=== PATIENT | female | born 1980 | race Caucasian/White ===

== ENCOUNTER 2016-08-31 14:50 | Emergency (ER) | payer SELFPAY ==
[2016-08-31 15:06] VITALS: BP 153/104
[2016-08-31] MEDS ORDERED: Ketorolac 60 MG/2 ML SDV IM ONE (15:21)
--- NOTE | 2016-08-31 15:27 | EDM.PDOC ---
ED HPI Trauma - General Chief Complaint: Lower Extremity Injury/Pain Stated Complaint: PAIN IN FEET Time Seen by Provider: 08/31/16 15:04 Source: Reports: Patient History Limitations: Reports: No limitations - History of Present Illness INITIAL COMMENTS - FREE TEXT/NARRATIVE: Patient is a 36-year-old female who presents to the ED complaining of bilateral foot discomfort. Patient states yesterday at her son's birthday republican she was walking excessively wearing slip on shoes. States the discomfort to the arches have progressively gotten worse. She notices increase pain with ambulation in the morning with mild improvement. Discomfort persists throughout the course of the day. She is taking Tylenol and ibuprofen with no relief. She describes the pain as a throbbing sensation. She is wearing sandals and slip on shoes only. She has no prior history of similar symptoms. She denies any additional known precipitating factors. In addition patient is tearful and upset with discomfort to her feet bilaterally. She does state she has a history of genital herpes and is currently having a outbreak. States has no pain with sores are present. She's not medicated for this. She also stopped taking her Lexapro approximately 2 weeks ago. She did not refill the prescription medication. She does have a history of depression anxiety. She recently moved back in with her of 12 years. Patient denies history of gout. Occurred When: other Occurred Where: home Method of Injury: unknown Severity: moderate Pain/Injury Location: Reports: lower extremity, right, lower extremity, left Associated Symptoms: Reports: trouble walking (2nd to foot pain) Allergies/ADRs: Allergies pork Allergy (Uncoded 08/31/16 15:02) Swelling Home Medications: Ambulatory Orders Escitalopram Oxalate [Lexapro] 10 mg PO DAILY 08/30/15 [Confirmed 06/24/16] LORazepam [Ativan] 1 mg PO ASDIRECTED 04/12/16 [Confirmed 06/24/16] Dicyclomine Hcl [IJD: Dicyclomine] 20 mg PO .THREE TIMES DAILY #10 tab 06/22/16 [Confirmed 06/24/16] Acetaminophen/HYDROcodone [[place] 325-5 MG] 1 tab PO Q6H PRN #5 tablet 06/24/16 Past Medical History - Past Health History Medical/Surgical History: Denies 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: Psychiatric History: Reports: Anxiety - Infectious Disease History Infectious Disease History: Reports: Herpes - Past Surgical History HEENT Surgical History: Reports: Tonsillectomy GI Surgical History: Reports: Appendectomy Female Surgical History: Reports: D&C Social & Family History - Tobacco Use Smoking Status *Q: Current Every Day Smoker Years of Tobacco use: 20 Packs/Tins Daily: 0.5 Used Tobacco, but Quit: No Second Hand Smoke Exposure: No - Caffeine Use Caffeine Use: Reports: Tea - Alcohol Use Days Per Week of Alcohol Use: 2 Number of Drinks Per Day: 1 Total Drinks Per Week: 2 - Recreational Drug Use Recreational Drug Use: No Review of Systems - Review of Systems Review Of Systems: See Below Trauma Exam - Physical Exam Exam: See Below Exam Limited By: No limitations General Appearance: Reports: alert, WD/WN, other (upset, tearful) Ears: Reports: hearing grossly normal Nose: Reports: normal inspection Throat/Mouth: Reports: Normal voice, No airway compromise Neck: Reports: other (supple) Respiratory Exam: Reports: no respiratory distress, lungs clear, normal breath sounds, no accessory muscle use Cardiovascular: Reports: normal peripheral pulses, regular rate, rhythm, no edema, no murmur Extremities: Reports: no evidence of injury, normal range of motion, non-tender , no pedal edema. Denies: tenderness, unable to bear weight Neurologic: Reports: no motor/sensory deficits, alert, normal mood/affect, oriented x 3 Skin: Reports: Normal color, Warm/dry Course - Vital Signs Last Recorded V/S: Last Vital Signs Temp 97.7 F 08/31/16 15:02 Pulse 85 08/31/16 15:02 Resp 18 08/31/16 15:02 BP 153/104 H 08/31/16 15:02 Pulse Ox 99 08/31/16 15:02 - Orders/Labs/Meds Meds: Medications Discontinued Medications Generic Name Dose Route Start Last Admin Trade Name Refugio PRN Reason Stop Dose Admin Ketorolac Tromethamine 60 mg 08/31/16 15:21 08/31/16 15:29 Toradol IM 08/31/16 15:22 60 mg ONETIME ONE Administration - Re-Assessments/Exams Free Text/Narrative Re-Assessment/Exam: 08/31/16 15:22 Examination did not elicit any abnormal findings on examination. History suggestive of plantar fasciitis. Patient does wear slip on shoes majority of the time which can aggravate symptoms. Patient will see a primary care provider at the [facility] for further treatment of genital herpes. In addition we'll refer the patient to a sander and polisher for further evaluation treatment of her discomfort. Discharge instructions as documented. Departure - Departure Time of Disposition: 15:41 Disposition: Home, Self-Care 01 Condition: good Clinical Impression: Plantar fasciitis, bilateral, Foot pain, bilateral Instructions: Plantar Fasciitis Referrals: PCP,Dorita [Primary Care Provider] - Shae Rockwell PA [Physician Team Truck Driver] - Forms: ED Department Discharge Additional Instructions: As discussed symptoms are most likely related to plantar fasciitis aggravated by wearing slip on shoes. Thus will have you take Tylenol and ibuprofen and alternate fashion for discomfort. Refrain from wearing slip on shoes. Wearing shoes that she can tie. Refrain from any activities that cause worsening discomfort. Can utilize gentle stretching and massage the feet he may be a discomfort. Followup with a sander and polisher of your choice for further examination and treatment. Will have you followup with a primary care provider at [facility] for further evaluation and treatment for genital herpes. Return to the ED as needed for any new or worsening symptoms.
== END 2016-08-31 15:54 | disposition home or self-care (01) ==
LOC: JD.ED 14:50
DX: M72.2 Plantar fascial fibromatosis (principal); F41.9 Anxiety disorder, unspecified; F17.210 Nicotine dependence, cigarettes, uncomplicated; Z79.899 Other long term (current) drug therapy; Z98.890 Other specified postprocedural states; Z90.49 Acquired absence of other specified parts of digestive tract; Z91.018 Allergy to other foods
CPT/HCPCS: 96372; 99283; J1885

== ENCOUNTER 2016-11-14 12:56 | Emergency (ER) | payer SELFPAY ==
--- NOTE | 2016-11-14 13:50 | EDM.PDOC ---
ED HPI GENERAL MEDICAL PROBLEM - General Chief Complaint: ENT Problem Stated Complaint: SORES ON TONGUE, SWOLLEN TONGUE Time Seen by Provider: 11/14/16 13:33 Source of Information: Reports: Patient, RN Notes Reviewed History Limitations: Reports: No Limitations - History of Present Illness INITIAL COMMENTS - FREE TEXT/NARRATIVE: The patient states that she has mouth pain, that feels like she is eating glass , since this past , 11/12/2016. She states that it is worse today. She states that her tongue is swollen. The patient states that she was recently told that she has a canker sore, and confirms that she has a history of canker sores. No recent fever. The patient has not tried any home remedies. The patient does not have a PCP. 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: Psychiatric History: Reports: Anxiety (untreated), Depression (untreated) - Infectious Disease History Infectious Disease History: Reports: Herpes - Past Surgical History HEENT Surgical History: Reports: Adenoidectomy, Tonsillectomy GI Surgical History: Reports: Appendectomy Female Surgical History: Reports: D&C (x 3) Social & Family History - Family History Family Medical History: Noncontributory - Tobacco Use Smoking Status *Q: Current Some Day Smoker Years of Tobacco use: 15 Packs/Tins Daily: 0.1 - Caffeine Use Caffeine Use: Reports: Tea - Alcohol Use Alcohol Use History: Yes Days Per Week of Alcohol Use: 2 Number of Drinks Per Day: 1 Total Drinks Per Week: 2 Alcohol Use Frequency: Socially - Recreational Drug Use Recreational Drug Use: No - Living Situation & Occupation Living situation: Reports: , with Spouse, with Family (3 kids) Occupation: Employed ([employer]) ED ROS ENT - Review of Systems Review Of Systems: See Below Constitutional: Reports: No Symptoms HEENT: Reports: No Symptoms Respiratory: Reports: No Symptoms Cardiovascular: Reports: No Symptoms Endocrine: Reports: No Symptoms GI/Abdominal: Reports: No Symptoms : Reports: No Symptoms Musculoskeletal: Reports: No Symptoms Skin: Reports: No Symptoms Neurological: Reports: No Symptoms Psychiatric: Reports: No Symptoms Hematologic/Lymphatic: Reports: No Symptoms Immunologic: Reports: No Symptoms ED EXAM, ENT - Physical Exam Exam: See Below Exam Limited By: No Limitations General Appearance: Alert, WD/WN, No Apparent Distress Eye Exam: Bilateral Eye: Normal Inspection Ears: Normal External Exam, Normal Canal, Hearing Grossly Normal, Normal TMs Nose: Normal Inspection, Normal Mucousa, No Blood Mouth/Throat: Normal Gums, Normal Lips, Normal Oropharynx, Normal Teeth, Other ( Single aphthous ulcer noted on the underside right of the patient's tongue, with no associated swelling or erythema. No other oral lesions seen.). No: Tongue Swelling Head: Atraumatic, Normocephalic Neck: Normal Inspection, Supple, Non-Tender, Full Range of Motion. No: Lymphadenopathy (L), Lymphadenopathy (R) Course - Vital Signs Last Recorded V/S: Last Vital Signs Temp 36.8 C 11/14/16 13:00 Pulse 94 11/14/16 13:00 Resp 16 11/14/16 13:00 BP 126/89 11/14/16 13:00 Pulse Ox 98 11/14/16 13:00 - Re-Assessments/Exams Free Text/Narrative Re-Assessment/Exam: 11/14/16 13:45 Despite the patient's claim of pain all over her mouth, I see only a single aphthous ulcer on the right underside of her tongue, with no associated swelling or erythema, and I see no other oral lesions or tongue swelling. I explained to the patient that this is caused by a virus, and there are no treatments (other than steroids with Orabase, which, in my experience, does not work). I'm recommending the patient avoid hot, spicy, salty, or sweet foods. Departure - Departure Time of Disposition: 13:47 Disposition: Home, Self-Care 01 Condition: Good Clinical Impression: Aphthous ulcer of tongue - Discharge Information Referrals: PCP,None [Primary Care Provider] - Loly Rivas SIZE MAKER [Ordering Only Provider] - Forms: ED Department Discharge Additional Instructions: You were seen in the emergency room for mouth pain. On examination, you have an aphthous ulcer (canker sore) on the underside of your tongue. Canker sores are caused by a virus. Unfortunately, there is no medical treatment for them. We recommend you try to avoid hot, spicy, sweet, and salty foods. Cold and bland, such as sucking on ice cube, will be most comfortable. If any other problems, please do not hesitate to return to the ER.
== END 2016-11-14 13:55 | disposition home or self-care (01) ==
LOC: JD.ED 12:56
CPT/HCPCS: 99282; 99283

== ENCOUNTER 2017-01-11 13:06 | Emergency (ER) | payer SELFPAY ==
[2017-01-11 13:13] VITALS: BP 135/105
[2017-01-11] MEDS ORDERED: Sodium Chloride 0.9% 10 ML Syringe FLUSH PRN (13:33)
--- NOTE | 2017-01-11 15:21 | EDM.PDOC ---
ED HPI GENERAL MEDICAL PROBLEM - General Chief Complaint: Chest Pain Stated Complaint: [facility] Time Seen by Provider: 01/11/17 13:18 Source of Information: Reports: Patient, EMS History Limitations: Reports: No Limitations - History of Present Illness INITIAL COMMENTS - FREE TEXT/NARRATIVE: The patient presents with chest pain at work. This started prior to arrival. She was short of breath with it and anxious. She had a 5 hour energy drink this morning. She has a history of anxiety and she stopped her medications. She denies fever, abdominal pain, nausea or vomiting. She has a cough and chills. She was on antibiotics for bronchitis a few days ago. She is not wheezing but she does have a cough yet. Onset: Sudden Duration: Minutes: Location: Reports: Chest Quality: Reports: Pressure Severity: Moderate Improves with: Reports: None Worsens with: Reports: None Associated Symptoms: Reports: Chest Pain, Cough, Shortness of Breath. Denies: Fever/Chills, Nausea/Vomiting - Related Data Allergies Allergy/AdvReac Type Severity Reaction Status Date / Time pork Allergy Swelling Uncoded 01/11/17 13:13 Home Meds: Home Meds Ascorbic Acid [Vitamin C] 1 tab PO DAILY 11/14/16 [History] Cholecalciferol (Vitamin D3) [Vitamin D3] 1 tab PO DAILY 11/14/16 [History] Fish Oil/[place]-3 Fatty Acids [Fish Oil 1,000 MG] 1 tab PO DAILY 11/14/16 [ History] Multivitamin [Multi-Vitamin Daily] 1 tab PO DAILY 11/14/16 [History] Vitamin E 1 tab PO DAILY 11/14/16 [History] Past Medical History - Past Health History Medical/Surgical History: Denies Medical/Surgical History Respiratory 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: 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, 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: Psychiatric History: Reports: Anxiety, Depression, Panic Attack - Infectious Disease History Infectious Disease History: Reports: Herpes - Past Surgical History HEENT Surgical History: Reports: Adenoidectomy, Tonsillectomy GI Surgical History: Reports: Appendectomy Female Surgical History: Reports: D&C, Oophorectomy Social & Family History - Family History Family Medical History: Noncontributory - Tobacco Use Smoking Status *Q: Current Some Day Smoker Years of Tobacco use: 10 Packs/Tins Daily: 0.1 Used Tobacco, but Quit: No Second Hand Smoke Exposure: No - Caffeine Use Caffeine Use: Reports: Energy Drinks - Alcohol Use Days Per Week of Alcohol Use: 2 Number of Drinks Per Day: 1 Total Drinks Per Week: 2 - Recreational Drug Use Recreational Drug Use: No - Living Situation & Occupation Living situation: Reports: , with Spouse, with Family (3 kids) 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) ED ROS GENERAL - Review of Systems Review Of Systems: See Below Constitutional: Reports: No Symptoms HEENT: Reports: No Symptoms Respiratory: Reports: Shortness of Breath Cardiovascular: Reports: Chest Pain Endocrine: Reports: No Symptoms GI/Abdominal: Reports: No Symptoms : Reports: No Symptoms Musculoskeletal: Reports: No Symptoms Skin: Reports: No Symptoms ED EXAM, GENERAL - Physical Exam Exam: See Below Exam Limited By: No Limitations General Appearance: Alert, No Apparent Distress Ears: Normal External Exam Nose: Normal Inspection Head: Atraumatic, Normocephalic Neck: Normal Inspection Respiratory/Chest: No Respiratory Distress, Lungs Clear, Normal Breath Sounds Cardiovascular: Regular Rate, Rhythm, No Edema, No Murmur GI/Abdominal: Soft, Non-Tender, No Organomegaly, No Mass Back Exam: Normal Inspection Extremities: Normal Inspection EKG INTERPRETATION EKG Date: 01/11/17 Time: 13:14 Rhythm: NSR Rate (Beats/Min): 86 [place]: Normal P-Wave: Present QRS: Normal ST-T: Normal QT: Normal Course - Vital Signs Last Recorded V/S: Last Vital Signs Temp 97.9 F 01/11/17 13:10 Pulse 91 01/11/17 13:10 Resp 18 01/11/17 13:10 BP 135/105 H 01/11/17 13:10 Pulse Ox 100 01/11/17 13:10 - Orders/Labs/Meds Orders: Active Orders 24 hr Category Date Time Status Cardiac Monitoring [RC] . DIRECTED Care 01/11/17 13:33 Active EKG 12 Lead [EKG Documentation Completion] [RC] STAT Care 01/11/17 13:18 Active Peripheral IV Care [RC] . DIRECTED Care 01/11/17 13:34 Active Chest 2V [CR] Stat Exams 01/11/17 13:34 Taken Sodium Chloride 0.9% [Saline Flush] Med 01/11/17 13:33 Active 10 ml FLUSH ASDIRECTED PRN Peripheral IV Insertion Adult [OM.PC] Stat Oth 01/11/17 13:33 Ordered Medication Orders Sodium Chloride (Saline Flush) 10 ml FLUSH ASDIRECTED PRN PRN Reason: Keep Vein Open Last Admin: 01/11/17 13:53 Dose: 10 ml Labs: Laboratory Tests 01/11/17 01/11/17 01/11/17 Range/Units 14:10 14:10 14:10 WBC 6.76 (3.98-10.04) K/mm3 RBC 4.16 (3.98-5.22) M/mm3 Hgb 13.0 (11.2-15.7) gm/L Hct 37.9 (34.1-44.9) % MCV 91.1 (79.4-94.8) fl MCH 31.3 (25.6-32.2) pg MCHC 34.3 (32.2-35.5) g/dl RDW Std Deviation 39.8 (36.4-46.3) fL Plt Count 182 (182-369) K/mm3 MPV 10.3 (9.4-12.3) fl Neut % (Auto) 60.8 (34.0-71.1) % Lymph % (Auto) 27.1 (19.3-51.7) % [place] % (Auto) 9.0 (4.7-12.5) % Eos % (Auto) 2.4 (0.7-5.8) Baso % (Auto) 0.6 (0.1-1.2) % Neut # (Auto) 4.11 (1.56-6.13) K/mm3 Lymph # (Auto) 1.83 (1.18-3.74) K/mm3 [place] # (Auto) 0.61 H (0.24-0.36) K/mm3 Eos # (Auto) 0.16 (0.04-0.36) K/mm3 Baso # (Auto) 0.04 (0.01-0.08) K/mm3 D-Dimer, Quantitative < 0.19 L (0.19-0.59) mg/L Sodium 137 (136-145) mEq/L Potassium 3.7 (3.5-5.1) mEq/L Chloride 101 (98-107) mEq/L Carbon Dioxide 27 (21-32) mEq/L Anion Gap 12.7 (5-15) BUN 12 (7-18) mg/dL Creatinine 0.8 (0.55-1.02) mg/dL Est Cr Clr Drug Dosing 90.13 mL/min Estimated GFR (MDRD) > 60 (>60) mL/min BUN/Creatinine Ratio 15.0 (14-18) Glucose 112 H (74-106) mg/dL Calcium 9.2 (8.5-10.1) mg/dL Total Bilirubin 0.8 (0.2-1.0) mg/dL AST 16 (15-37) U/L ALT 24 (14-59) U/L Alkaline Phosphatase 72 (46-116) U/L Troponin I < 0.017 (0.00-0.056) ng/mL Total Protein 7.6 (6.4-8.2) g/dl Albumin 4.0 (3.4-5.0) g/dl Globulin 3.6 gm/dL Albumin/Globulin Ratio 1.1 (1-2) Meds: Medications Generic Name Dose Route Start Last Admin Trade Name Freq PRN Reason Stop Dose Admin Sodium Chloride 10 ml 01/11/17 13:33 01/11/17 13:53 Saline Flush FLUSH 10 ml ASDIRECTED PRN Administration Keep Vein Open - Re-Assessments/Exams Free Text/Narrative Re-Assessment/Exam: 01/11/17 15:20 I ordered an IV saline lock, labs, EKG, and CXR. Her pain is gone now. Her EKG shows a NSR. Her CXR looks good. Her CBC and CMP look good. Her troponin is negative. She feels better. I will discharge her home. 01/11/17 15:26 Her D-dimer was negative. Departure - Departure Time of Disposition: 15:30 Disposition: Home, Self-Care 01 Condition: Good Clinical Impression: Atypical chest pain, Anxiety reaction Referrals: Loly Rivas ROOMING HOUSE INSPECTOR [Primary Care Provider] - Forms: ED Department Discharge, ED Return to Work/School Form Additional Instructions: Avoid the energy drinks. Most of them have to much caffeine and other stimulants and can make your heart race of have chest pain. Go home and rest today. - My Orders Last 24 Hours: My Active Orders 01/11/17 13:18 EKG 12 Lead [EKG Documentation Completion] [RC] STAT 01/11/17 13:33 Cardiac Monitoring [RC] . DIRECTED Sodium Chloride 0.9% [Saline Flush] 10 ml FLUSH ASDIRECTED PRN Peripheral IV Insertion Adult [OM.PC] Stat 01/11/17 13:34 Peripheral IV Care [RC] . DIRECTED Chest 2V [CR] Stat - Assessment/Plan Last 24 Hours: My Active Orders 01/11/17 13:18 EKG 12 Lead [EKG Documentation Completion] [RC] STAT 01/11/17 13:33 Cardiac Monitoring [RC] . DIRECTED Sodium Chloride 0.9% [Saline Flush] 10 ml FLUSH ASDIRECTED PRN Peripheral IV Insertion Adult [OM.PC] Stat 01/11/17 13:34 Peripheral IV Care [RC] . DIRECTED Chest 2V [CR] Stat
--- NOTE | 2017-01-12 07:57 | CR ---
Chest: Two views of the chest were obtained. Comparison: Previous chest x-ray of 09/08/13. Heart size and mediastinum are normal. Lungs are clear. Bony structures are unremarkable. Impression: 1. Nothing acute is identified on two-view chest x-ray. Diagnostic code #1
== END 2017-01-11 15:38 | disposition home or self-care (01) ==
LOC: JD.ED 13:06
DX: F41.1 Generalized anxiety disorder (principal); R07.89 Other chest pain; F17.210 Nicotine dependence, cigarettes, uncomplicated; Z98.890 Other specified postprocedural states; Z91.018 Allergy to other foods
CPT/HCPCS: 36415; 71020; 80053; 84484; 85025; 85379; 93005; 99285; J7050; 99284

== ENCOUNTER 2017-10-28 00:34 | Emergency (ER) | payer OTHER ==
[2017-10-28 00:38] VITALS: BP 105/79
[2017-10-28] MEDS ORDERED: LORazepam 2 MG/ML SDV IVPUSH ONE (00:56)
[2017-10-28] MEDS ORDERED: Sodium Chloride 0.9% 10 ML Syringe FLUSH PRN (00:56)
[2017-10-28] MEDS ORDERED: diphenhydrAMINE 50 MG/ML SDV IVPUSH ONE (00:56)
--- NOTE | 2017-10-28 01:40 | EDM.PDOC ---
ED HPI GENERAL MEDICAL PROBLEM - General Chief Complaint: Allergic Reaction Stated Complaint: [facility] Time Seen by Provider: 10/28/17 00:40 Source of Information: Reports: Patient, EMS History Limitations: Reports: No Limitations - History of Present Illness INITIAL COMMENTS - FREE TEXT/NARRATIVE: The patient presents by [facility] for possible allergic reaction. Her psychiatrist made some changes to her meds today. She now has pain in her hips and leg. The pain feels like cramps. She has no shortness of breath or swelling in her throat. She is not sure of all the changes but she has a sheet of paper that shows they stopped her trazadone and she says she did not get any clonidine. She is upset and crying for my exam. Onset: Gradual Duration: Hour(s): Location: Reports: Lower Extremity, Left, Lower Extremity, Right Quality: Reports: Other (cramping) Severity: Moderate Improves with: Reports: None Worsens with: Reports: None Associated Symptoms: Reports: No Other Symptoms Bilateral Leg Pain Score (Numeric/FACES): 6 - Related Data Allergies Allergy/AdvReac Type Severity Reaction Status Date / Time pork Allergy Swelling Uncoded 01/11/17 13:13 Home Meds: Home Meds Acetaminophen/Diphenhydramine [Tylenol Pm Ex-Strength Caplet] 1 tab PO DAILY PRN 10/28/17 [History] Escitalopram [Lexapro] 10 mg PO DAILY 10/28/17 [History] LORazepam [Ativan] 0.5 mg PO Q8H PRN 10/28/17 [History] Prazosin HCl [Prazosin] 2 mg PO DAILY 10/28/17 [History] carBAMazepine [Carbamazepine] 200 mg PO BID 10/28/17 [History] hydrOXYzine Pamoate [Hydroxyzine Pamoate] 50 mg PO DAILY 10/28/17 [History] Past Medical History - Past Health History Medical/Surgical History: Denies Medical/Surgical History Respiratory History: 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, Recurrent CPO History: Reports: Psychiatric History: Reports: Anxiety, Depression, Panic Attack - Infectious Disease History Infectious Disease History: Reports: Herpes - Past Surgical History HEENT Surgical History: Reports: Adenoidectomy, Tonsillectomy GI Surgical History: Reports: Appendectomy Female Surgical History: Reports: D&C, Oophorectomy Social & Family History - Family History Family Medical History: Noncontributory - Tobacco Use Smoking Status *Q: Current Every Day Smoker Years of Tobacco use: 10 Packs/Tins Daily: 0.5 - Caffeine Use Caffeine Use: Reports: Coffee - Recreational Drug Use Recreational Drug Use: Yes - Living Situation & Occupation Living situation: Reports: , with Spouse, with Family (3 kids) 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) ED ROS ALLERGIC REACTION - Review of Systems Review Of Systems: See Below Constitutional: Reports: No Symptoms HEENT: Reports: No Symptoms Respiratory: Reports: No Symptoms Cardiovascular: Reports: No Symptoms Endocrine: Reports: No Symptoms GI/Abdominal: Reports: No Symptoms : Reports: No Symptoms Musculoskeletal: Reports: Other (Bilateral hip and leg pain) ED EXAM GENERAL NO PERIP PULSE - Physical Exam Exam: See Below Exam Limited By: No Limitations General Appearance: Alert, Mild Distress Ears: Normal External Exam Nose: Normal Inspection Head: Atraumatic, Normocephalic Neck: Normal Inspection Respiratory/Chest: No Respiratory Distress, Lungs Clear, Normal Breath Sounds Cardiovascular: Regular Rate, Rhythm, No Edema, No Murmur GI/Abdominal: Soft, Non-Tender, No Organomegaly, No Mass Back Exam: Normal Inspection Extremities: Other (Mild pain upon palpation to both hips and lower legs.) Course - Vital Signs Last Recorded V/S: Last Vital Signs Temp 98.1 F 10/28/17 00:35 Pulse 70 10/28/17 02:07 Resp 18 10/28/17 00:35 BP 105/79 10/28/17 00:35 Pulse Ox 98 10/28/17 02:07 - Orders/Labs/Meds Orders: Active Orders 24 hr Category Date Time Status Cardiac Monitoring [RC] . DIRECTED Care 10/28/17 00:56 Active Peripheral IV Care [RC] . DIRECTED Care 10/28/17 00:56 Active Sodium Chloride 0.9% [Saline Flush] Med 10/28/17 00:56 Active 10 ml FLUSH ASDIRECTED PRN Peripheral IV Insertion Adult [OM.PC] Stat Oth 10/28/17 00:56 Ordered Medication Orders Sodium Chloride (Saline Flush) 10 ml FLUSH ASDIRECTED PRN PRN Reason: Keep Vein Open Last Admin: 10/28/17 01:20 Dose: 10 ml Labs: Laboratory Tests 10/28/17 10/28/17 Range/Units 00:45 00:45 WBC 8.23 (3.98-10.04) K/mm3 RBC 4.23 (3.98-5.22) M/mm3 Hgb 13.1 (11.2-15.7) gm/L Hct 37.9 (34.1-44.9) % MCV 89.6 (79.4-94.8) fl MCH 31.0 (25.6-32.2) pg MCHC 34.6 (32.2-35.5) g/dl RDW Std Deviation 39.7 (36.4-46.3) fL Plt Count 197 (182-369) K/mm3 MPV 11.1 (9.4-12.3) fl Neut % (Auto) 48.4 (34.0-71.1) % Lymph % (Auto) 39.2 (19.3-51.7) % [place] % (Auto) 7.7 (4.7-12.5) % Eos % (Auto) 4.0 (0.7-5.8) Baso % (Auto) 0.5 (0.1-1.2) % Neut # (Auto) 3.98 (1.56-6.13) K/mm3 Lymph # (Auto) 3.23 (1.18-3.74) K/mm3 [place] # (Auto) 0.63 H (0.24-0.36) K/mm3 Eos # (Auto) 0.33 (0.04-0.36) K/mm3 Baso # (Auto) 0.04 (0.01-0.08) K/mm3 Sodium 136 (136-145) mEq/L Potassium 3.8 (3.5-5.1) mEq/L Chloride 103 (98-107) mEq/L Carbon Dioxide 24 (21-32) mEq/L Anion Gap 12.8 (5-15) BUN 16 (7-18) mg/dL Creatinine 0.8 (0.55-1.02) mg/dL Est Cr Clr Drug Dosing 82.33 mL/min Estimated GFR (MDRD) > 60 (>60) mL/min BUN/Creatinine Ratio 20.0 H (14-18) Glucose 130 H (74-106) mg/dL Calcium 8.6 (8.5-10.1) mg/dL Magnesium 1.6 L (1.8-2.4) mg/dl Total Bilirubin 0.3 (0.2-1.0) mg/dL AST 10 L (15-37) U/L ALT 16 (14-59) U/L Alkaline Phosphatase 86 (46-116) U/L Total Protein 7.0 (6.4-8.2) g/dl Albumin 3.7 (3.4-5.0) g/dl Globulin 3.3 gm/dL Albumin/Globulin Ratio 1.1 (1-2) Meds: Medications Generic Name Dose Route Start Last Admin Trade Name Freq PRN Reason Stop Dose Admin Sodium Chloride 10 ml 10/28/17 00:56 10/28/17 01:20 Saline Flush FLUSH 10 ml ASDIRECTED PRN Administration Keep Vein Open Discontinued Medications Generic Name Dose Route Start Last Admin Trade Name Freq PRN Reason Stop Dose Admin Diphenhydramine HCl 50 mg 10/28/17 00:56 10/28/17 01:17 Benadryl IVPUSH 10/28/17 00:57 50 mg ONETIME ONE Administration Lorazepam 0.5 mg 10/28/17 00:56 Ativan IVPUSH 10/28/17 00:57 ONETIME ONE - Re-Assessments/Exams Free Text/Narrative Re-Assessment/Exam: 10/28/17 01:39 I ordered an IV and labs and some benadryl 50mg IV. 10/28/17 02:25 Her CBC and CMP look good. She still has pain in her hips. I will give her some toradol. I do not think this is related to the medications. I will discharge her soon. Departure - Departure Time of Disposition: 02:30 Disposition: Home, Self-Care 01 Condition: Good Clinical Impression: Bilateral hip pain - Discharge Information Referrals: PCP,None [Primary Care Provider] - Forms: ED Department Discharge Additional Instructions: Follow up with your doctor within a week. Take motrin or tylenol for the pain. Take your medication as prescribed. - My Orders Last 24 Hours: My Active Orders 10/28/17 00:56 Cardiac Monitoring [RC] . DIRECTED Peripheral IV Care [RC] . DIRECTED Sodium Chloride 0.9% [Saline Flush] 10 ml FLUSH ASDIRECTED PRN Peripheral IV Insertion Adult [OM.PC] Stat - Assessment/Plan Last 24 Hours: My Active Orders 10/28/17 00:56 Cardiac Monitoring [RC] . DIRECTED Peripheral IV Care [RC] . DIRECTED Sodium Chloride 0.9% [Saline Flush] 10 ml FLUSH ASDIRECTED PRN Peripheral IV Insertion Adult [OM.PC] Stat
[2017-10-28] MEDS ORDERED: Ketorolac 30 MG/ML SDV IVPUSH ONE (02:26)
== END 2017-10-28 02:40 | disposition home or self-care (01) ==
LOC: JD.ED 00:34
DX: M25.551 Pain in right hip (principal); M25.552 Pain in left hip; F17.210 Nicotine dependence, cigarettes, uncomplicated; F41.0 Panic disorder [episodic paroxysmal anxiety]; Z91.018 Allergy to other foods
CPT/HCPCS: 36415; 80053; 83735; 85025; 96374; 96375; 99284; J1200; J1885; J7050

== ENCOUNTER 2017-12-19 13:09 | Emergency (ER) | payer MEDICAID, OTHER ==
[2017-12-19 13:41] VITALS: BP 158/107
[2017-12-19 15:02] LABS: ACETAMINOPHEN 0 ug/mL (10-30)
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
== END 2017-12-19 18:00 ==
LOC: JD.ED 13:09
DX: F32.9 Major depressive disorder, single episode, unspecified (principal); R45.851 Suicidal ideations; F15.129 Other stimulant abuse with intoxication, unspecified; F10.20 Alcohol dependence, uncomplicated
CPT/HCPCS: 36415; 80053; 80306; 81025; 84443; 85007; 85027; 93005; 99285; G0480

== ENCOUNTER 2019-03-02 18:05 | Emergency (ER) | payer MEDICAID ==
[2019-03-02 18:25] VITALS: BP 139/98; PULSE 69
--- NOTE | 2019-03-02 19:39 | EDM.PDOC ---
ED HPI GENERAL MEDICAL PROBLEM - General Chief Complaint: General Stated Complaint: SWOLLEN ALL OVER BODY Time Seen by Provider: 03/02/19 18:53 Source of Information: Reports: Patient History Limitations: Reports: No Limitations - History of Present Illness INITIAL COMMENTS - FREE TEXT/NARRATIVE: Mrs. Jones is a very pleasant 39-year-old woman who readily acknowledges that she has been injecting methamphetamine on and off for the past 20 years, with her last injection about 4 days ago. She states that she is in line for inpatient treatment at [facility] in [place]. She states that she has been in inpatient treatment only once before, about a year ago. The patient now presents to the ED stating that when she woke up around 17:30 this afternoon, she felt swollen all over. She believes that she had a "hot dose " of methamphetamine 4 days ago, meaning methamphetamine mixed with something else. She is also concerned, because she discovered about 6 months ago that her boyfriend, who is currently in prison, is hepatitis C positive, and she acknowledges that they shared needles and had unprotected sex. She is also concerned that she has an STD, because she "sleeps around", having unprotected sex for the past several months, and has had a yellow, thin vaginal discharge with foul odor for the past 2 months. She denies having a vaginal itch. No recent fever, chills, cough, shortness of breath, nausea, vomiting, constipation , diarrhea, or urinary symptoms. When asked why she decided to come to the ED tonight, she stated that she knew a woman who recently , and she is concerned that she might similarly soon. The patient does not have a PCP. Her Psychiatrist is Dr. Juju Betts. 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) Psychiatric History: Reports: ADHD (untreated), Addiction (methamphetamine, alcohol), Depression, Panic Attack, PTSD - Infectious Disease History Infectious Disease History: Reports: Herpes - Past Surgical History HEENT Surgical History: Reports: Adenoidectomy, Myringotomy w Tube(s) (bilateral ), Tonsillectomy GI Surgical History: Reports: Appendectomy Female Surgical History: Reports: D&C (x 3), Tubal Ligation Social & Family History - Family History Family Medical History: Noncontributory - Tobacco Use Smoking Status *Q: Current Every Day Smoker Years of Tobacco use: 28 Packs/Tins Daily: 1 Packs/Tins Daily Comment: since 11 years old - Caffeine Use Caffeine Use: Reports: Coffee - Alcohol Use Alcohol Use History: Yes Date/Time of Last Drink Comment: Binge alcoholic - last in Jan 2019 Alcohol Use Frequency: Binges - Recreational Drug Use Recreational Drug Use: Yes Drug Use in Last 12 Months: Yes Recreational Drug Type: Reports: Benzodiazepines, Ecstasy, Marijuana/Hashish ( last smoked early Jan 2019), Methamphetamine (injects regularly, sometimes smokes) - Living Situation & Occupation Living situation: Reports: (), Alone ([place]) Occupation: Unemployed ED ROS GENERAL - Review of Systems Review Of Systems: ROS reveals no pertinent complaints other than HPI. ED EXAM, GENERAL - Physical Exam Exam: See Below Exam Limited By: No Limitations General Appearance: Alert, WD/WN, No Apparent Distress Eye Exam: Bilateral Eye: EOMI, Normal Inspection Ears: Normal External Exam, Hearing Grossly Normal Nose: Normal Inspection Throat/Mouth: Normal Inspection, Normal Lips, Normal Voice, No Airway Compromise Head: Atraumatic, Normocephalic Neck: Normal Inspection, Full Range of Motion Respiratory/Chest: No Respiratory Distress, Lungs Clear, Normal Breath Sounds, No Accessory Muscle Use Cardiovascular: Normal Peripheral Pulses, Regular Rate, Rhythm, No Edema, No Gallop, No JVD, No Murmur, No Rub Peripheral Pulses: 4+: Radial (L), Radial (R) GI/Abdominal: Normal Bowel Sounds, Soft, Non-Tender, No Organomegaly, No Distention, No Abnormal Bruit, No Mass (Female) Exam: Other (No vulvovaginal erythema. Copious quantity of slightly yellowish malodorous vaginal discharge. No vaginal lesions seen.) Rectal (Female) Exam: Deferred Back Exam: Normal Inspection, Full Range of Motion, NT Extremities: Normal Inspection, Normal Range of Motion, No Pedal Edema, Normal Capillary Refill Neurological: Alert, Oriented, Normal Cognition, No Motor/Sensory Deficits Psychiatric: Normal Affect Skin Exam: Warm, Dry, Intact, Normal Color, No Rash Course - Vital Signs Last Recorded V/S: Last Vital Signs Temp 36.4 C 03/02/19 18:21 Pulse 69 03/02/19 18:21 Resp 20 03/02/19 18:21 BP 139/98 H 03/02/19 18:21 Pulse Ox 100 03/02/19 18:21 - Orders/Labs/Meds Orders: Active Orders 24 hr Category Date Time Status CULTURE GENITAL [RM] Stat Lab 03/02/19 20:12 Received HEPATITIS PANEL (4) [REF] Stat Lab 03/02/19 19:45 Received Labs: Laboratory Tests 03/02/19 03/02/19 03/02/19 Range/Units 19:43 19:45 19:45 RPR Non-reactive (NONREACTIVE) HIV-1 Ab Rapid Screen Negative (NEGATIVE) C trachomatis DNA (PCR) Not detected N gonorrhoeae DNA (PCR) Not detected - Re-Assessments/Exams Free Text/Narrative Re-Assessment/Exam: 03/02/19 19:32 Given the patient's history of a IV drug abuse with shared needles and numerous unprotected sexual partners, the patient is certainly at risk for [place] a number of infectious diseases. For today's purposes, we will draw a hepatitis panel, HIV screen, and syphilis screen. The HIV and syphilis results will be back tonight, but the hepatitis panel is a send-out. The patient will provide a urine sample for a GC/Chlamydia by PCR, and I will perform a pelvic exam, collecting a vaginal culture and wet prep. With respect to the patient feeling swollen, I did not find any swelling on examination. I suspect that the patient's judgment may be a bit altered. 03/02/19 21:27 Notified that the patient eloped from the ED about 15 minutes ago. Her HIV screen and RPR returned negative. Her wet prep found a few clue cells, moderate WBCs, and many epithelial cells. Trichomonas is negative. 03/02/19 21:40 The patient's GC/chlamydia by PCR have both returned negative. Departure - Departure Time of Disposition: 21:30 Disposition: Eloped 07 Condition: Good Clinical Impression: IVDU (intravenous drug user) - Discharge Information *PRESCRIPTION DRUG MONITORING PROGRAM REVIEWED*: Not Applicable *COPY OF PRESCRIPTION DRUG MONITORING REPORT IN PATIENT VINICIUS: Not Applicable Referrals: PCP,None [Primary Care Provider] - Forms: ED Department Discharge - My Orders Last 24 Hours: My Active Orders 03/02/19 19:45 HEPATITIS PANEL (4) [REF] Stat 03/02/19 20:12 CULTURE GENITAL [RM] Stat - Assessment/Plan Last 24 Hours: My Active Orders 03/02/19 19:45 HEPATITIS PANEL (4) [REF] Stat 03/02/19 20:12 CULTURE GENITAL [RM] Stat
[2019-03-02 21:20] LABS: C. TRACHOMATIS BY PCR NOT DETECTED; N. GONORRHOEAE BY PCR NOT DETECTED
== END 2019-03-02 20:59 | disposition left against medical advice (07) ==
LOC: JD.ED 18:05
DX: F15.20 Other stimulant dependence, uncomplicated (principal); F32.9 Major depressive disorder, single episode, unspecified; F17.210 Nicotine dependence, cigarettes, uncomplicated; Z91.018 Allergy to other foods
CPT/HCPCS: 80074; 86592; 87070; 87077; 87210; 87491; 87591; 87808; 99283; G0433

== ENCOUNTER 2019-08-06 09:55 | Emergency (ER) | payer MEDICAID ==
[2019-08-06] MEDS ORDERED: Sodium Chloride 0.9% 10 ML Syringe FLUSH PRN (10:08)
[2019-08-06 10:11] VITALS: BP 103/72
[2019-08-06] MEDS ORDERED: Sodium Chloride 0.9% 1,000 ML IV SCH (10:15)
[2019-08-06 11:43] VITALS: PULSE 71
[2019-08-06] MEDS ORDERED: Lactated Ringers 1,000 ML IV ONE (12:11)
--- NOTE | 2019-08-06 13:05 | EDM.PDOC ---
ED HPI GENERAL MEDICAL PROBLEM - General Chief Complaint: General Stated Complaint: [facility] Time Seen by Provider: 08/06/19 10:08 Source of Information: Reports: Patient, RN Notes Reviewed - History of Present Illness INITIAL COMMENTS - FREE TEXT/NARRATIVE: [facility] due to altered mental status this morning. On arrival to ED not verbalizing, answering questions so unable to obtain any meaningful hx on patient's arrival to ED. - Related Data Allergies Allergy/AdvReac Type Severity Reaction Status Date / Time pork Allergy Swelling Uncoded 03/02/19 18:25 Home Meds: Home Meds Escitalopram Oxalate [Lexapro] 20 mg PO DAILY 03/02/19 [History] Past Medical History - Past Health History Medical/Surgical History: Denies Medical/Surgical History Respiratory History: 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, Recurrent MOVERS History: Reports: Psychiatric History: Reports: ADHD, Addiction, Depression, Panic Attack, PTSD - Infectious Disease History Infectious Disease History: Reports: Herpes - Past Surgical History HEENT Surgical History: Reports: Adenoidectomy, Myringotomy w Tube(s), Tonsillectomy GI Surgical History: Reports: Appendectomy Female Surgical History: Reports: D&C, Tubal Ligation Social & Family History - Family History Family Medical History: Noncontributory - Tobacco Use Smoking Status *Q: Unknown Ever Smoked - Caffeine Use Caffeine Use: Reports: Coffee - Living Situation & Occupation Living situation: Reports: (), Alone ([place]) Occupation: Unemployed ED ROS GENERAL - Review of Systems Review Of Systems: Unable To Obtain Reason Not Obtained: patient not answering questions on arrival to ED ED EXAM, GENERAL - Physical Exam Exam: See Below Exam Limited By: Other (not verbalizing at time of exam) General Appearance: Other (awake, just staring at the ceiling, not verbalizing at all or answering any questions at time of initial exam) Eye Exam: Bilateral Eye: PERRL Ears: Normal External Exam Nose: Normal Inspection Throat/Mouth: Normal Inspection, Other (no blood, no apparent injury) Neck: Normal Inspection Respiratory/Chest: No Respiratory Distress, Lungs Clear, Normal Breath Sounds Cardiovascular: Regular Rate, Rhythm GI/Abdominal: Soft, Non-Tender Extremities: No: Pedal Edema, Leg Pain, Increased Warmth, Redness Neurological: Other (awake, not answering questions, she did weakly squeeze fingers bilat at time of inial exam) Skin Exam: Warm, Dry, Normal Color Course - Vital Signs Last Recorded V/S: Last Vital Signs Temp 98.2 F 08/06/19 10:07 Pulse 71 08/06/19 11:15 Resp 16 08/06/19 11:15 BP 103/72 08/06/19 10:07 Pulse Ox 99 08/06/19 11:15 - Orders/Labs/Meds Labs: Laboratory Tests 08/06/19 08/06/19 08/06/19 Range/Units 10:15 10:15 10:15 WBC 5.09 (3.98-10.04) K/mm3 RBC 4.48 (3.98-5.22) M/mm3 Hgb 13.6 (11.2-15.7) gm/dl Hct 39.6 (34.1-44.9) % MCV 88.4 (79.4-94.8) fl MCH 30.4 (25.6-32.2) pg MCHC 34.3 (32.2-35.5) g/dl RDW Std Deviation 39.1 (36.4-46.3) fL Plt Count 236 (182-369) K/mm3 MPV 10.6 (9.4-12.3) fl Neut % (Auto) 51.1 (34.0-71.1) % Lymph % (Auto) 37.5 (19.3-51.7) % [place] % (Auto) 8.8 (4.7-12.5) % Eos % (Auto) 2.2 (0.7-5.8) Baso % (Auto) 0.4 (0.1-1.2) % Neut # (Auto) 2.60 (1.56-6.13) K/mm3 Lymph # (Auto) 1.91 (1.18-3.74) K/mm3 [place] # (Auto) 0.45 H (0.24-0.36) K/mm3 Eos # (Auto) 0.11 (0.04-0.36) K/mm3 Baso # (Auto) 0.02 (0.01-0.08) K/mm3 Sodium 140 (136-145) mEq/L Potassium 4.0 (3.5-5.1) mEq/L Chloride 104 (98-107) mEq/L Carbon Dioxide 25 (21-32) mEq/L Anion Gap 15.0 (5-15) BUN 16 (7-18) mg/dL Creatinine 0.8 (0.55-1.02) mg/dL Est Cr Clr Drug Dosing TNP Estimated GFR (MDRD) > 60 (>60) mL/min BUN/Creatinine Ratio 20.0 H (14-18) Glucose 154 H (74-106) mg/dL Calcium 9.0 (8.5-10.1) mg/dL Total Bilirubin 1.6 H (0.2-1.0) mg/dL AST 13 L (15-37) U/L ALT 22 (14-59) U/L Alkaline Phosphatase 77 (46-116) U/L Total Protein 7.1 (6.4-8.2) g/dl Albumin 3.9 (3.4-5.0) g/dl Globulin 3.2 gm/dL Albumin/Globulin Ratio 1.2 (1-2) Urine Opiates Screen (BJMLST=945) Ur Buprenorphine Scrn (CUTOFF=10) Ur Oxycodone Screen (BEM6SZ=955) Urine Methadone Screen (XSGGDX=648) Ur Propoxyphene Screen (SANOGC=429) Ur Barbiturates Screen (BUOFKK=007) Ur Tricyclics Screen (SRBICB=230) Ur Phencyclidine Scrn (CUTOFF=25) Ur Amphetamine Screen (IRDCKU=436) U Methamphetamines Scrn (ODKFZN=563) U Benzodiazepines Scrn (EMEBED=158) U Cocaine Metab Screen (CXEKDJ=428) U Marijuana (THC) Screen (CUTOFF=50) Ethyl Alcohol 0.00 (0.00) gm% 08/06/19 Range/Units 12:30 WBC (3.98-10.04) K/mm3 RBC (3.98-5.22) M/mm3 Hgb (11.2-15.7) gm/dl Hct (34.1-44.9) % MCV (79.4-94.8) fl MCH (25.6-32.2) pg MCHC (32.2-35.5) g/dl RDW Std Deviation (36.4-46.3) fL Plt Count (182-369) K/mm3 MPV (9.4-12.3) fl Neut % (Auto) (34.0-71.1) % Lymph % (Auto) (19.3-51.7) % [place] % (Auto) (4.7-12.5) % Eos % (Auto) (0.7-5.8) Baso % (Auto) (0.1-1.2) % Neut # (Auto) (1.56-6.13) K/mm3 Lymph # (Auto) (1.18-3.74) K/mm3 [place] # (Auto) (0.24-0.36) K/mm3 Eos # (Auto) (0.04-0.36) K/mm3 Baso # (Auto) (0.01-0.08) K/mm3 Sodium (136-145) mEq/L Potassium (3.5-5.1) mEq/L Chloride (98-107) mEq/L Carbon Dioxide (21-32) mEq/L Anion Gap (5-15) BUN (7-18) mg/dL Creatinine (0.55-1.02) mg/dL Est Cr Clr Drug Dosing Estimated GFR (MDRD) (>60) mL/min BUN/Creatinine Ratio (14-18) Glucose (74-106) mg/dL Calcium (8.5-10.1) mg/dL Total Bilirubin (0.2-1.0) mg/dL AST (15-37) U/L ALT (14-59) U/L Alkaline Phosphatase (46-116) U/L Total Protein (6.4-8.2) g/dl Albumin (3.4-5.0) g/dl Globulin gm/dL Albumin/Globulin Ratio (1-2) Urine Opiates Screen Negative (FALUKW=725) Ur Buprenorphine Scrn Negative (CUTOFF=10) Ur Oxycodone Screen Negative (KJK1XJ=581) Urine Methadone Screen Negative (PKEDYQ=068) Ur Propoxyphene Screen Negative (UQZQYL=000) Ur Barbiturates Screen Negative (ESIKBW=569) Ur Tricyclics Screen Negative (EXRGVY=268) Ur Phencyclidine Scrn Negative (CUTOFF=25) Ur Amphetamine Screen Negative (FIIWHI=703) U Methamphetamines Scrn Negative (NJUNQN=292) U Benzodiazepines Scrn Negative (VFGKQK=874) U Cocaine Metab Screen Negative (QQSFWO=787) U Marijuana (THC) Screen Negative (CUTOFF=50) Ethyl Alcohol (0.00) gm% Meds: Medications Discontinued Medications Generic Name Dose Route Start Last Admin Trade Name Refugio PRN Reason Stop Dose Admin Sodium Chloride 1,000 mls @ 999 mls/hr 08/06/19 10:15 08/06/19 10:44 Normal Saline IV 999 mls/hr ONETIME NAOMY Administration Lactated Ringer's 1,000 mls @ 999 mls/hr 08/06/19 12:11 08/06/19 12:20 Ringers, Lactated IV 08/06/19 13:11 999 mls/hr .BOLUS ONE Administration Sodium Chloride 10 ml 08/06/19 10:08 08/06/19 10:44 Saline Flush FLUSH 10 ml ASDIRECTED PRN Administration Keep Vein Open - Re-Assessments/Exams Free Text/Narrative Re-Assessment/Exam: 08/06/19 13:00. Notified that patient is awake, ready for discharge. She has been ambulatory to and from the bathroom without difficulty. She admits to being anxious. She states she has hx of depression, stopped taking her lexapro for reasons unknown a couple of weeks ago. Speech, affect nl at time of discharge. Ambulatory without difficulty, no facial droop, no focal neuro deficit. Labs did come back relatively normal. she [facility] Departure - Departure Time of Disposition: 13:21 Disposition: Home, Self-Care 01 Condition: Fair Clinical Impression: Altered mental status - Discharge Information Instructions: Confusion Referrals: PCP,None [Primary Care Provider] - Forms: ED Department Discharge Additional Instructions: Continue lexapro as previously prescribed. Drink plenty of water to maintain hydration, eat regular meals and snacks. Call [facility] in the morning to get appointment to see Dr Betts, next available appointment. Sepsis Event Note - Evaluation Sepsis Screening Result: No Definite Risk - Focused Exam Date Exam was Performed: 08/08/19 Time Exam was Performed: 10:46
== END 2019-08-06 14:14 | disposition home or self-care (01) ==
LOC: JD.ED 09:55
DX: R41.82 Altered mental status, unspecified (principal); F41.0 Panic disorder [episodic paroxysmal anxiety]; F32.9 Major depressive disorder, single episode, unspecified; Z91.018 Allergy to other foods; Z79.899 Other long term (current) drug therapy
CPT/HCPCS: 36415; 80053; 80306; 80307; 85025; 96360; 96361; 99285; J7030; J7120; 99283

== ENCOUNTER 2020-09-15 12:16 | Emergency (ER) | payer SELFPAY ==
[2020-09-15] MEDS ORDERED: Ibuprofen 600 MG Tab PO ONE (13:10)
--- NOTE | 2020-09-15 14:11 | EDM.PDOC ---
ED HPI GENERAL MEDICAL PROBLEM - General Chief Complaint: General Stated Complaint: SWELLING AND UNABLE TO CONTROL MUSCLES Time Seen by Provider: 09/15/20 12:49 Source of Information: Reports: Patient History Limitations: Reports: No Limitations - History of Present Illness INITIAL COMMENTS - FREE TEXT/NARRATIVE: The patient presents with arm and leg swelling. She says she injected meth 2 days ago. She was in recovery for months and relapsed. She now has swelling to her hands, feet and face. She also has some uncontrollable movements. She has muscle aches. She denies fever, chills, cough, chest pain, shortness of breath, abdominal pain, nausea or vomiting. She has no history of heart problems. She has no history of endocarditis. Onset: Gradual Duration: Day(s): Location: Reports: Generalized Quality: Reports: Ache Severity: Moderate Improves with: Reports: None Worsens with: Reports: None Associated Symptoms: Denies: Chest Pain, Cough, Fever/Chills, Headaches, Nausea/Vomiting, Shortness of Breath Bilateral Hand Pain Score (Numeric/FACES): 4 - Related Data Allergies Allergy/AdvReac Type Severity Reaction Status Date / Time pork Allergy Swelling Uncoded 09/15/20 13:11 Home Meds: Home Meds Escitalopram Oxalate [Lexapro] 20 mg PO DAILY 03/02/19 [History] Furosemide [Lasix] 20 mg PO DAILY #3 tab 09/15/20 [Rx] Past Medical History - Past Health History Medical/Surgical History: Denies Medical/Surgical History Respiratory History: 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, Recurrent L[place]ON [place]OWER History: Reports: Psychiatric History: Reports: ADHD, Addiction, Depression, Panic Attack, PTSD - Infectious Disease History Infectious Disease History: Reports: Herpes - Past Surgical History HEENT Surgical History: Reports: Adenoidectomy, Myringotomy w Tube(s), Tonsillectomy GI Surgical History: Reports: Appendectomy Female Surgical History: Reports: D&C, Tubal Ligation Social & Family History - Family History Family Medical History: No Pertinent Family History - Tobacco Use Tobacco Use Status *Q: Current Every Day Tobacco User Years of Tobacco use: 15 Packs/Tins Daily: 0.5 - Caffeine Use Caffeine Use: Reports: None - Recreational Drug Use Recreational Drug Use: Yes Drug Use in Last 12 Months: No Recreational Drug Type: Reports: Methamphetamine Recreational Drug Use Frequency: Binges - Living Situation & Occupation Living situation: Reports: (), Alone ([place]) Occupation: Unemployed ED ROS GENERAL - Review of Systems Review Of Systems: See Below Constitutional: Reports: No Symptoms HEENT: Reports: No Symptoms Respiratory: Reports: No Symptoms Cardiovascular: Reports: No Symptoms Endocrine: Reports: No Symptoms GI/Abdominal: Reports: No Symptoms : Reports: No Symptoms Musculoskeletal: Reports: Muscle Pain ED EXAM, GENERAL - Physical Exam Exam: See Below Exam Limited By: No Limitations General Appearance: Alert, No Apparent Distress Ears: Normal External Exam Nose: Normal Inspection Head: Atraumatic, Normocephalic Neck: Normal Inspection Respiratory/Chest: No Respiratory Distress, Lungs Clear, Normal Breath Sounds Cardiovascular: Regular Rate, Rhythm, No Edema, No Murmur GI/Abdominal: Soft, Non-Tender, No Organomegaly, No Mass Extremities: Other (Mild to moderate edema to both hands and feet) #1 Interpretation EKG Date: 09/15/20 Time: 13:35 Rhythm: NSR Rate (Beats/Min): 81 Arab[place]: Normal P-Wave: Present QRS: Normal ST-T: Normal QT: Normal Course - Vital Signs Last Recorded V/S: Last Vital Signs Temp 98.2 F 09/15/20 13:01 Pulse 77 09/15/20 13:01 Resp 12 09/15/20 13:01 BP 122/92 H 09/15/20 13:01 Pulse Ox 100 09/15/20 13:01 - Orders/Labs/Meds Orders: Active Orders 24 hr Category Date Time Status Cardiac Monitoring [RC] . DIRECTED Care 09/15/20 13:11 Active EKG Documentation Completion [RC] STAT Care 09/15/20 13:12 Active Chest 1V Frontal [CR] Stat Exams 09/15/20 13:12 Taken Labs: Laboratory Tests 09/15/20 09/15/20 09/15/20 Range/Units 13:24 13:24 13:24 WBC 5.78 (3.98-10.04) K/mm3 RBC 4.23 (3.98-5.22) M/mm3 Hgb 12.6 (11.2-15.7) gm/dl Hct 37.8 (34.1-44.9) % MCV 89.4 (79.4-94.8) fl MCH 29.8 (25.6-32.2) pg MCHC 33.3 (32.2-35.5) g/dl RDW Std Deviation 42.2 (36.4-46.3) fL Plt Count 160 L D (182-369) K/mm3 MPV 11.0 (9.4-12.3) fl Neut % (Auto) 55.5 (34.0-71.1) % Lymph % (Auto) 25.8 (19.3-51.7) % [place] % (Auto) 12.8 H (4.7-12.5) % Eos % (Auto) 5.0 (0.7-5.8) Baso % (Auto) 0.7 (0.1-1.2) % Neut # (Auto) 3.21 (1.56-6.13) K/mm3 Lymph # (Auto) 1.49 (1.18-3.74) K/mm3 [place] # (Auto) 0.74 H (0.24-0.36) K/mm3 Eos # (Auto) 0.29 (0.04-0.36) K/mm3 Baso # (Auto) 0.04 (0.01-0.08) K/mm3 Sodium 141 (136-145) mEq/L Potassium 3.5 (3.5-5.1) mEq/L Chloride 104 (98-107) mEq/L Carbon Dioxide 30 (21-32) mEq/L Anion Gap 10.5 (5-15) BUN 11 (7-18) mg/dL Creatinine 0.8 (0.55-1.02) mg/dL Est Cr Clr Drug Dosing 79.91 mL/min Estimated GFR (MDRD) > 60 (>60) mL/min BUN/Creatinine Ratio 13.8 L (14-18) Glucose 81 (70-99) mg/dL Calcium 8.6 (8.5-10.1) mg/dL Magnesium 2.7 H (1.8-2.4) mg/dL Total Bilirubin 1.0 (0.2-1.0) mg/dL AST 16 (15-37) U/L ALT 23 (14-59) U/L Alkaline Phosphatase 85 (46-116) U/L Troponin I < 0.017 (0.00-0.056) ng/mL NT-Pro-B Natriuret Pep 101 (0-125) pg/mL Total Protein 6.9 (6.4-8.2) g/dl Albumin 3.6 (3.4-5.0) g/dl Globulin 3.3 gm/dL Albumin/Globulin Ratio 1.1 (1-2) Meds: Medications Discontinued Medications Generic Name Dose Route Start Last Admin Trade Name Refugio PRN Reason Stop Dose Admin Ibuprofen 600 mg 09/15/20 13:10 09/15/20 13:17 Ibuprofen 600 Mg Tab PO 09/15/20 13:11 600 mg ONETIME ONE Administration - Re-Assessments/Exams Free Text/Narrative Re-Assessment/Exam: 09/15/20 14:13 I ordered ibuprofen 600mg PO, EKG, CXR and labs. 09/15/20 14:31 Her EKG shows a NSR with no acute changes. 09/15/20 14:31 Her CXR looks good. Her labs look good. I will get her on some lasix for a few days to help get rid of the swelling. I feel it is from the meth. Departure - Departure Time of Disposition: 14:35 Disposition: Home, Self-Care 01 Condition: Good Clinical Impression: Peripheral edema, Involuntary movements - Discharge Information *PRESCRIPTION DRUG MONITORING PROGRAM REVIEWED*: Not Applicable *COPY OF PRESCRIPTION DRUG MONITORING REPORT IN PATIENT VINICIUS: Not Applicable Prescriptions: Furosemide [Lasix] 20 mg PO DAILY #3 tab Referrals: PCP,None [Primary Care Provider] - Panchito Gillespie, THEORETICAL PHYSICS TEACHER [Nurse Practitioner] - 1 Week Forms: ED Department Discharge Additional Instructions: Take the lasix daily for 3 days. That will help get rid of the swelling. Take benadryl 50mg every 6 hours. That will help with the involuntary movements you are having. Follow up with Les Nieto in our clinic. Please return if you are worse. Sepsis Event Note (ED) - Evaluation Sepsis Screening Result: No Definite Risk - Focused Exam Vital Signs: Vital Signs Temp Pulse Resp BP Pulse Ox 09/15/20 13:01 98.2 F 77 12 122/92 H 100 - My Orders Last 24 Hours: My Active Orders 09/15/20 13:11 Cardiac Monitoring [RC] . DIRECTED 09/15/20 13:12 EKG Documentation Completion [RC] STAT Chest 1V Frontal [CR] Stat - Assessment/Plan Last 24 Hours: My Active Orders 09/15/20 13:11 Cardiac Monitoring [RC] . DIRECTED 09/15/20 13:12 EKG Documentation Completion [RC] STAT Chest 1V Frontal [CR] Stat
[2020-09-15 15:10] VITALS: BP 120/82; PULSE 80
--- NOTE | 2020-09-16 07:47 | CR ---
Chest: Portable view of the chest was obtained. Comparison: Prior chest x-ray of 01/11/17. Heart size and mediastinum are normal for the patient's age. Lungs are clear with no acute parenchymal change. No acute osseous abnormality is appreciated. Impression: 1. Nothing acute is seen on portable chest x-ray. Diagnostic code #1
== END 2020-09-15 15:10 | disposition home or self-care (01) ==
LOC: JD.ED 12:16
DX: R60.0 Localized edema (principal); R25.9 Unspecified abnormal involuntary movements; Z91.018 Allergy to other foods; Z79.899 Other long term (current) drug therapy; Z72.0 Tobacco use
CPT/HCPCS: 36415; 71045; 80053; 83735; 83880; 84484; 85025; 93005; 99284; A9270; 93010; 99283

== ENCOUNTER 2022-09-18 16:42 | Emergency (ER) | payer SELFPAY ==
[2022-09-18 16:52] VITALS: BP 121/93; PULSE 84
[2022-09-18] MEDS ORDERED: Sodium Chloride 0.9% 1,000 ML IV ONE (17:43)
[2022-09-18] MEDS ORDERED: Sodium Chloride 0.9% 10 ML Syringe FLUSH PRN (17:44)
[2022-09-18] MEDS ORDERED: HYDROmorphone 1 MG/ML Syringe IVPUSH ONE (17:44)
[2022-09-18 17:52] LABS: BASOPHILS ABSOLUTE AUTO 0.04 K/mm3 (0.01-0.08); BASOPHILS PERCENT AUTO 0.6 % (0.1-1.2); EOSINOPHILS ABSOLUTE AUTO 0.39 K/mm3 (0.04-0.36); EOSINOPHILS PERCENT AUTO 5.6 (0.7-5.8); HEMATOCRIT 40.7 % (34.1-44.9); HEMOGLOBIN 14.1 gm/dl (11.2-15.7); LYMPHOCYTES ABSOLUTE AUTO 2.49 K/mm3 (1.18-3.74); LYMPHOCYTES PERCENT AUTO 35.7 % (19.3-51.7); MEAN CORPUSCULAR HEMOGLOBIN 30.7 pg (25.6-32.2); MEAN CORPUSCULAR HGB CONC 34.6 g/dl (32.2-35.5); MEAN CORPUSCULAR VOLUME 88.5 fl (79.4-94.8); MEAN PLATELET VOLUME 10.7 fl (9.4-12.3); MONOCYTES ABSOLUTE AUTO 0.68 K/mm3 (0.24-0.36); MONOCYTES PERCENT AUTO 9.8 % (4.7-12.5); NEUTROPHILS ABSOLUTE AUTO 3.37 K/mm3 (1.56-6.13); NEUTROPHILS PERCENT AUTO 48.3 % (34.0-71.1); PLATELET COUNT,PLT 257 K/mm3 (182-369); WHITE BLOOD CELL COUNT,WBC 6.97 K/mm3 (3.98-10.04)
[2022-09-18 18:01] LABS: ALBUMIN 4.1 g/dl (3.4-5.0); ANION GAP 12.9 (5-15); BILIRUBIN TOTAL 0.6 mg/dL (0.2-1.0); C-REACTIVE PROTEIN 0.2 mg/dL (<1.0); CALCIUM 9.3 mg/dL (8.5-10.1); EST CRCL DRUG DOSING (CG) 62.64 mL/min; POTASSIUM,K 3.9 mEq/L (3.5-5.1); PROTEIN TOTAL,TP 8.2 g/dl (6.4-8.2)
[2022-09-18 19:09] LABS: APPEARANCE,URINE CLEAR (Clear); BILIRUBIN,URINE NEGATIVE (Negative); COLOR,URINE LIGHT YELLOW (Yellow); GLUCOSE,URINE NEGATIVE (Negative); KETONES,URINE NEGATIVE (Negative); LEUKOCYTE ESTERASE,URINE NEGATIVE (Negative); NITRITE,URINE NEGATIVE (Negative); OCCULT BLOOD,URINE NEGATIVE (Negative); PH,URINE 6.5 (5.0-8.0); PROTEIN,URINE NEGATIVE (Negative); UROBILINOGEN,URINE 0.2 (0.2-1.0)
== END 2022-09-18 19:50 | disposition home or self-care (01) ==
LOC: JD.ED 16:42
DX: R10.30 Lower abdominal pain, unspecified (principal); Z91.014 Allergy to mammalian meats; Z90.49 Acquired absence of other specified parts of digestive tract
CPT/HCPCS: 36415; 80053; 81003; 85025; 86140; 96361; 96374; 99284; J1170; J3490; J7030

== ENCOUNTER 2022-12-05 06:46 | Emergency (ER) | payer MEDICAID, OTHER ==
[2022-12-05 06:58] VITALS: BP 119/71; PULSE 71
[2022-12-05] MEDS ORDERED: HYDROmorphone 1 MG/ML Syringe IM ONE (07:27)
== END 2022-12-05 08:00 | disposition home or self-care (01) ==
LOC: JD.ED 06:46
DX: S60.221A Contusion of right hand, initial encounter (principal); S67.21XA Crushing injury of right hand, initial encounter; Z79.899 Other long term (current) drug therapy; Z91.018 Allergy to other foods
CPT/HCPCS: 73130; 96372; 99283; J1170

== ENCOUNTER 2023-01-11 08:06 | Emergency (ER) | payer MEDICAID, OTHER ==
[2023-01-11] MEDS ORDERED: Ketorolac 60 MG/2 ML SDV IM ONE (11:24)
[2023-01-11 13:45] VITALS: BP 124/84; PULSE 98
== END 2023-01-11 12:00 | disposition home or self-care (01) ==
LOC: JD.ED 08:06
DX: U07.1 COVID-19 (principal); Z91.014 Allergy to mammalian meats
CPT/HCPCS: 96372; 99283; J1885

== ENCOUNTER 2023-05-21 21:23 | Emergency (ER) | payer BC, MEDICAID ==
[2023-05-21 21:56] LABS: BASOPHILS ABSOLUTE AUTO 0.1 K/mm3 (0.0-0.2); BASOPHILS PERCENT AUTO 0.7 % (0.0-1.0); EOSINOPHILS ABSOLUTE AUTO 0.4 K/mm3 (0.0-0.4); EOSINOPHILS PERCENT AUTO 4.6 % (0.0-6.0); HEMATOCRIT 39.9 % (37.0-47.0); HEMOGLOBIN 13.7 gm/dl (12.0-16.0); IMMATURE GRAN ABSOLUTE AUTO 0.01 K/mm3 (0.00-0.05); IMMATURE GRAN PERCENT AUTO 0.1 % (0.0-0.4); LYMPHOCYTES ABSOLUTE AUTO 2.9 K/mm3 (1.0-4.8); LYMPHOCYTES PERCENT AUTO 38.4 % (24.0-44.0); MEAN CORPUSCULAR HEMOGLOBIN 31.1 pg (28.0-32.0); MEAN CORPUSCULAR HGB CONC 34.3 g/dl (32.0-36.0); MEAN CORPUSCULAR VOLUME 90.5 fl (83.0-99.0); MEAN PLATELET VOLUME 10.4 fl (9.4-12.3); MONOCYTES ABSOLUTE AUTO 0.5 K/mm3 (0.0-0.8); MONOCYTES PERCENT AUTO 6.7 % (0.0-8.0); NEUTROPHILS ABSOLUTE AUTO 3.8 K/mm3 (1.8-7.7); NEUTROPHILS PERCENT AUTO 49.5 % (41.0-71.0); PLATELET COUNT,PLT 191 K/mm3 (150-400); RED BLOOD CELL COUNT 4.41 M/mm3 (4.10-5.30); WHITE BLOOD CELL COUNT,WBC 7.66 K/mm3 (3.9-11.3)
[2023-05-21] MEDS ORDERED: Aspirin 81 MG Tab.Chew PO ONE (22:00)
[2023-05-21] MEDS ORDERED: Nitroglycerin/D5W 25 MG/250 ML BOTTLE IV SCH (22:00)
[2023-05-21] MEDS ORDERED: Metoclopramide 10 MG/2 ML SDV IVPUSH ONE (22:03)
[2023-05-21 22:16] LABS: INR 0.99; PROTHROMBIN TIME 10.6 SECONDS (9.7-12.0)
[2023-05-21 22:17] LABS: PTT,PARTIAL THROMBOPLSTIN TIME 24.4 SECONDS (21.7-31.4)
[2023-05-21 22:21] LABS: ALANINE AMINOTRANSFERASE,ALT 26 U/L (14-59); ALBUMIN 3.9 g/dl (3.4-5.0); ANION GAP 12.5 (5-15); ASPARTATE AMNIOTRANSFERASE,AST 13 U/L (15-37); BILIRUBIN TOTAL 0.7 mg/dL (0.2-1.0); BLOOD UREA NITROGEN,BUN 19 mg/dL (7-18); BUN/CREATININE RATIO 21.1 (14-18); C-REACTIVE PROTEIN <0.2 mg/dL (<1.0); CALCIUM 9.6 mg/dL (8.5-10.1); CARBON DIOXIDE,CO2 28 mEq/L (21-32); CHLORIDE,CL 101 mEq/L (98-107); CREATININE 0.9 mg/dL (0.55-1.02); EST CRCL DRUG DOSING (CG) 71.78 mL/min; ESTIMATED GFR 81 mL/min (>60); GLUCOSE RANDOM 136 mg/dL (70-99); MAGNESIUM 1.7 mg/dL (1.8-2.4); POTASSIUM,K 3.5 mEq/L (3.5-5.1); PROTEIN TOTAL,TP 7.7 g/dl (6.4-8.2); SODIUM,NA 138 mEq/L (136-145)
[2023-05-21] MEDS ORDERED: LORazepam 2 MG/ML SDV IVPUSH ONE (22:28)
[2023-05-21 22:41] LABS: ALKALINE PHOSPHATASE 108 U/L (46-116); TROPONIN I HIGH SENSITIVITY 13 pg/mL (<=51)
[2023-05-21 23:38] VITALS: BP 113/88; PULSE 65
== END 2023-05-21 23:50 | disposition home or self-care (01) ==
LOC: JD.ED 21:23
DX: R00.2 Palpitations (principal); R07.89 Other chest pain; Z79.899 Other long term (current) drug therapy
CPT/HCPCS: 36415; 71045; 80053; 83735; 83880; 84443; 84484; 85025; 85379; 85610; 85730; 86140; 93005; 96365; 96375; 99285; A9270; J2060; J2305; J2765; 93010; 99284

== ENCOUNTER 2023-08-26 10:45 | Emergency (ER) | payer SELFPAY ==
[2023-08-26 11:30] LABS: BASOPHILS ABSOLUTE AUTO 0.1 K/mm3 (0.0-0.2); BASOPHILS PERCENT AUTO 1.4 % (0.0-1.0); EOSINOPHILS ABSOLUTE AUTO 0.4 K/mm3 (0.0-0.4); EOSINOPHILS PERCENT AUTO 5.2 % (0.0-6.0); HEMATOCRIT 41.7 % (37.0-47.0); HEMOGLOBIN 14.5 gm/dl (12.0-16.0); IMMATURE GRAN ABSOLUTE AUTO 0.02 K/mm3 (0.00-0.05); IMMATURE GRAN PERCENT AUTO 0.3 % (0.0-0.4); LYMPHOCYTES ABSOLUTE AUTO 2.3 K/mm3 (1.0-4.8); LYMPHOCYTES PERCENT AUTO 32.8 % (24.0-44.0); MEAN CORPUSCULAR HEMOGLOBIN 30.9 pg (28.0-32.0); MEAN CORPUSCULAR HGB CONC 34.8 g/dl (32.0-36.0); MEAN CORPUSCULAR VOLUME 88.7 fl (83.0-99.0); MEAN PLATELET VOLUME 10.6 fl (9.4-12.3); MONOCYTES ABSOLUTE AUTO 0.5 K/mm3 (0.0-0.8); MONOCYTES PERCENT AUTO 7.5 % (0.0-8.0); NEUTROPHILS ABSOLUTE AUTO 3.7 K/mm3 (1.8-7.7); NEUTROPHILS PERCENT AUTO 52.8 % (41.0-71.0); PLATELET COUNT,PLT 243 K/mm3 (150-400); WHITE BLOOD CELL COUNT,WBC 7.05 K/mm3 (3.9-11.3)
[2023-08-26] MEDS: Acetaminophen 325 MG Tab PO ONE (11:36)
[2023-08-26] MEDS: Sodium Chloride 0.9% 1,000 ML IV ONE (11:37)
[2023-08-26 11:42] LABS: A/G RATIO 1.1 (1-2); ALBUMIN 4.1 g/dl (3.4-5.0); ANION GAP 17.1 (5-15); BILIRUBIN TOTAL 1.4 mg/dL (0.2-1.0); BUN/CREATININE RATIO 18.9 (14-18); CREATININE 0.9 mg/dL (0.55-1.02); EST CRCL DRUG DOSING (CG) 71.78 mL/min; POTASSIUM,K 4.1 mEq/L (3.5-5.1); PROTEIN TOTAL,TP 7.8 g/dl (6.4-8.2)
[2023-08-26 15:14] VITALS: BP 118/91; PULSE 68
== END 2023-08-26 12:38 | disposition home or self-care (01) ==
LOC: JD.ED 10:45
DX: R07.89 Other chest pain (principal); E78.00 Pure hypercholesterolemia, unspecified; I10 Essential (primary) hypertension; Z91.048 Other nonmedicinal substance allergy status; Z86.19 Personal history of other infectious and parasitic diseases; Z86.16 Personal history of COVID-19
CPT/HCPCS: 36415; 71046; 80053; 84484; 84703; 85025; 93005; 96360; 99285; A9270; J7030; 93010; 99284

== ENCOUNTER 2023-10-16 16:23 | Emergency (ER) | payer SELFPAY ==
[2023-10-16 17:36] VITALS: BP 131/89; PULSE 74
== END 2023-10-16 17:35 | disposition home or self-care (01) ==
LOC: JD.ED 16:23
DX: S80.02XA Contusion of left knee, initial encounter (principal); Z91.014 Allergy to mammalian meats; E78.00 Pure hypercholesterolemia, unspecified; I10 Essential (primary) hypertension; Z87.891 Personal history of nicotine dependence; W01.0XXA Fall on same level from slipping, tripping and stumbling without subsequent striking against object, initial encounter; Y92.89 Other specified places as the place of occurrence of the external cause; Y99.0 Civilian activity done for income or pay
CPT/HCPCS: 73562-26-LT; 73562-LT; 99283

== ENCOUNTER 2023-11-15 16:45 | Emergency (ER) | payer MEDICAID ==
[2023-11-15 16:53] VITALS: BP 123/86; PULSE 98
[2023-11-15] MEDS: Ketorolac 15 MG/ML SDV IVPUSH ONE (17:49)
[2023-11-15] MEDS: Sodium Chloride 0.9% 10 ML Syringe FLUSH PRN (17:49)
[2023-11-15 18:05] LABS: BASOPHILS ABSOLUTE AUTO 0.1 K/mm3 (0.0-0.2); BASOPHILS PERCENT AUTO 0.9 % (0.0-1.0); EOSINOPHILS ABSOLUTE AUTO 0.8 K/mm3 (0.0-0.4); EOSINOPHILS PERCENT AUTO 10.3 % (0.0-6.0); HEMATOCRIT 40.2 % (37.0-47.0); HEMOGLOBIN 13.8 gm/dl (12.0-16.0); IMMATURE GRAN ABSOLUTE AUTO 0.02 K/mm3 (0.00-0.05); IMMATURE GRAN PERCENT AUTO 0.3 % (0.0-0.4); LYMPHOCYTES ABSOLUTE AUTO 2.4 K/mm3 (1.0-4.8); LYMPHOCYTES PERCENT AUTO 31.6 % (24.0-44.0); MEAN CORPUSCULAR HEMOGLOBIN 30.6 pg (28.0-32.0); MEAN CORPUSCULAR HGB CONC 34.3 g/dl (32.0-36.0); MEAN CORPUSCULAR VOLUME 89.1 fl (83.0-99.0); MEAN PLATELET VOLUME 10.9 fl (9.4-12.3); MONOCYTES ABSOLUTE AUTO 0.6 K/mm3 (0.0-0.8); MONOCYTES PERCENT AUTO 7.4 % (0.0-8.0); NEUTROPHILS ABSOLUTE AUTO 3.7 K/mm3 (1.8-7.7); NEUTROPHILS PERCENT AUTO 49.5 % (41.0-71.0); PLATELET COUNT,PLT 190 K/mm3 (150-400); RED BLOOD CELL COUNT 4.51 M/mm3 (4.10-5.30); WHITE BLOOD CELL COUNT,WBC 7.54 K/mm3 (3.9-11.3)
[2023-11-15 18:06] LABS: APPEARANCE,URINE CLEAR (Clear); BILIRUBIN,URINE NEGATIVE (Negative); COLOR,URINE YELLOW (Yellow); GLUCOSE,URINE NEGATIVE (Negative); KETONES,URINE NEGATIVE (Negative); LEUKOCYTE ESTERASE,URINE TRACE (Negative); NITRITE,URINE NEGATIVE (Negative); OCCULT BLOOD,URINE NEGATIVE (Negative); PH,URINE 5.5 (5.0-8.0); PROTEIN,URINE NEGATIVE (Negative); UROBILINOGEN,URINE 0.2 (0.2-1.0)
[2023-11-15 18:21] LABS: RBC,URINE 0-5 /hpf (0-5); WBC,URINE 0-5 /hpf (0-5)
[2023-11-15 18:22] LABS: BACTERIA,URINE MODERATE /hpf (FEW); MUCUS,URINE FEW /hpf (FEW)
[2023-11-15 18:49] LABS: A/G RATIO 1.2 (1-2); ALBUMIN 4.1 g/dl (3.4-5.0); ANION GAP 14.7 (5-15); BILIRUBIN TOTAL 0.9 mg/dL (0.2-1.0); CALCIUM 9.4 mg/dL (8.5-10.1); CREATININE 0.8 mg/dL (0.55-1.02); EST CRCL DRUG DOSING (CG) 80.75 mL/min; POTASSIUM,K 3.7 mEq/L (3.5-5.1); PROTEIN TOTAL,TP 7.6 g/dl (6.4-8.2)
[2023-11-15] MEDS: Cyclobenzaprine 10 MG Tab PO ONE (19:24)
== END 2023-11-15 20:41 | disposition home or self-care (01) ==
LOC: JD.ED 16:45
DX: M62.830 Muscle spasm of back (principal); M54.50 Low back pain, unspecified; R10.9 Unspecified abdominal pain; I10 Essential (primary) hypertension; E78.00 Pure hypercholesterolemia, unspecified; F17.210 Nicotine dependence, cigarettes, uncomplicated; Z90.49 Acquired absence of other specified parts of digestive tract; Z91.018 Allergy to other foods; Z79.899 Other long term (current) drug therapy
CPT/HCPCS: 36415; 80053; 81001; 83690; 84703; 85025; 87086; 96374; 99284; A9270; J1885; J3490

== ENCOUNTER 2024-10-17 19:32 | Emergency (ER) | payer MEDICAID ==
[2024-10-17 19:46] VITALS: BP 141/105; PULSE 98
[2024-10-17] MEDS: Sodium Chloride 0.9% 1,000 ML IV SCH (20:43)
[2024-10-17 20:50] LABS: APPEARANCE,URINE CLEAR (Clear); BILIRUBIN,URINE NEGATIVE (Negative); COLOR,URINE ORANGE (Yellow); GLUCOSE,URINE TRACE (Negative); KETONES,URINE NEGATIVE (Negative); LEUKOCYTE ESTERASE,URINE NEGATIVE (Negative); NITRITE,URINE POSITIVE (Negative); OCCULT BLOOD,URINE NEGATIVE (Negative); PROTEIN,URINE 1+ (Negative)
[2024-10-17 20:54] LABS: BASOPHILS PERCENT AUTO 0.7 % (0.0-1.0); EOSINOPHILS ABSOLUTE AUTO 0.3 K/mm3 (0.0-0.4); EOSINOPHILS PERCENT AUTO 5.6 % (0.0-6.0); HEMOGLOBIN 13.7 gm/dl (12.0-16.0); IMMATURE GRAN ABSOLUTE AUTO 0.01 K/mm3 (0.00-0.05); IMMATURE GRAN PERCENT AUTO 0.2 % (0.0-0.4); LYMPHOCYTES ABSOLUTE AUTO 2.4 K/mm3 (1.0-4.8); LYMPHOCYTES PERCENT AUTO 40.8 % (24.0-44.0); MEAN CORPUSCULAR HEMOGLOBIN 30.6 pg (28.0-32.0); MEAN CORPUSCULAR HGB CONC 34.3 g/dl (32.0-36.0); MEAN CORPUSCULAR VOLUME 89.3 fl (83.0-99.0); MEAN PLATELET VOLUME 11.2 fl (9.4-12.3); MONOCYTES ABSOLUTE AUTO 0.6 K/mm3 (0.0-0.8); MONOCYTES PERCENT AUTO 9.3 % (0.0-8.0); NEUTROPHILS ABSOLUTE AUTO 2.6 K/mm3 (1.8-7.7); NEUTROPHILS PERCENT AUTO 43.4 % (41.0-71.0); PLATELET COUNT,PLT 206 K/mm3 (150-400); RED BLOOD CELL COUNT 4.48 M/mm3 (4.10-5.30); WHITE BLOOD CELL COUNT,WBC 5.93 K/mm3 (3.9-11.3)
[2024-10-17 21:09] LABS: BACTERIA,URINE MODERATE /hpf (FEW); MUCUS,URINE FEW /hpf (FEW); RBC,URINE 0-5 /hpf (0-5); SQUAMOUS EPITHELIAL CELLS,UR 0-5 /hpf (0-5); WBC,URINE 0-5 /hpf (0-5)
[2024-10-17 21:15] LABS: A/G RATIO 1.2 (1-2); ALBUMIN 3.7 g/dl (3.4-5.0); ANION GAP 13.5 (5-15); BILIRUBIN TOTAL 0.4 mg/dL (0.2-1.0); BUN/CREATININE RATIO 24.4 (14-18); CALCIUM 9.5 mg/dL (8.5-10.1); CREATININE 0.9 mg/dL (0.55-1.02); EST CRCL DRUG DOSING (CG) 68.16 mL/min; POTASSIUM,K 4.5 mEq/L (3.5-5.1); PROTEIN TOTAL,TP 6.9 g/dl (6.4-8.2)
[2024-10-17] MEDS: cefTRIAXone 2 GM in Sodium Chloride 0.9% 100 ML IV ONE (21:47)
[2024-10-17] MEDS: Ketorolac 30 MG/ML SDV IVPUSH ONE (22:15)
== END 2024-10-17 22:36 | disposition home or self-care (01) ==
LOC: JD.ED 19:32
DX: N39.0 Urinary tract infection, site not specified (principal); M53.3 Sacrococcygeal disorders, not elsewhere classified; E78.00 Pure hypercholesterolemia, unspecified; I10 Essential (primary) hypertension; F17.210 Nicotine dependence, cigarettes, uncomplicated; Z91.014 Allergy to mammalian meats; Z79.899 Other long term (current) drug therapy
CPT/HCPCS: 36415; 74176; 74176-26; 80053; 81001; 81025; 85025; 87086; 96361; 96365; 96375; 99284; 99284-25; J0696; J1885; J7030

== ENCOUNTER 2024-11-07 18:05 | Emergency (ER) | payer MEDICAID ==
[2024-11-07 18:40] VITALS: PULSE 109
[2024-11-07 18:41] VITALS: BP 113/91
[2024-11-07] MEDS ORDERED: Sodium Chloride 0.9% 10 ML Syringe FLUSH PRN (19:04)
[2024-11-07] MEDS: Ketorolac 30 MG/ML SDV IVPUSH ONE (19:32)
[2024-11-07] MEDS: Ondansetron 4 MG/2 ML SDV IVPUSH ONE (19:32)
[2024-11-07 19:33] LABS: BASOPHILS ABSOLUTE AUTO 0.0 K/mm3 (0.0-0.2); BASOPHILS PERCENT AUTO 0.6 % (0.0-1.0); EOSINOPHILS ABSOLUTE AUTO 0.2 K/mm3 (0.0-0.4); EOSINOPHILS PERCENT AUTO 4.2 % (0.0-6.0); IMMATURE GRAN ABSOLUTE AUTO 0.01 K/mm3 (0.00-0.05); IMMATURE GRAN PERCENT AUTO 0.2 % (0.0-0.4); LYMPHOCYTES ABSOLUTE AUTO 2.1 K/mm3 (1.0-4.8); LYMPHOCYTES PERCENT AUTO 38.9 % (24.0-44.0); MEAN PLATELET VOLUME 10.2 fl (9.4-12.3); MONOCYTES ABSOLUTE AUTO 0.4 K/mm3 (0.0-0.8); MONOCYTES PERCENT AUTO 7.3 % (0.0-8.0); NEUTROPHILS ABSOLUTE AUTO 2.7 K/mm3 (1.8-7.7); NEUTROPHILS PERCENT AUTO 48.8 % (41.0-71.0); NRBC ABSOLUTE 0.00 (0.00-0.02); NRBC PERCENT 0.0 % (0.0-0.2); PLATELET COUNT,PLT 177 K/mm3 (150-400); RED BLOOD CELL COUNT 4.35 M/mm3 (4.10-5.30); WHITE BLOOD CELL COUNT,WBC 5.45 K/mm3 (3.9-11.3)
[2024-11-07 19:34] LABS: APPEARANCE,URINE CLEAR (Clear); GLUCOSE,URINE NEGATIVE (Negative); OCCULT BLOOD,URINE NEGATIVE (Negative)
[2024-11-07 19:54] LABS: A/G RATIO 1.0 (1-2); ALANINE AMINOTRANSFERASE,ALT 40.0 U/L (14-59); ASPARTATE AMNIOTRANSFERASE,AST 20.0 U/L (15-37); BILIRUBIN TOTAL 0.5 mg/dL (0.2-1.0); BLOOD UREA NITROGEN,BUN 13.0 mg/dL (7-18); CARBON DIOXIDE,CO2 29.0 mEq/L (21-32); CHLORIDE,CL 100.0 mEq/L (98-107); CREATININE 0.8 mg/dL (0.55-1.02); EST CRCL DRUG DOSING (CG) 76.68 mL/min; ESTIMATED GFR 93.0 mL/min (>60); GLUCOSE RANDOM 125.0 mg/dL (70-99); POTASSIUM,K 3.9 mEq/L (3.5-5.1); PROTEIN TOTAL,TP 6.9 g/dl (6.4-8.2); SODIUM,NA 136.0 mEq/L (136-145)
[2024-11-07] MEDS: Iopamidol 612 MG/ML 100 ML Bottle IVPUSH ONE (20:33)
[2024-11-07] MEDS: Sodium Chloride 0.9% 10 ML Syringe FLUSH ONE (20:33)
== END 2024-11-07 22:28 | disposition home or self-care (01) ==
LOC: JD.ED 18:05
DX: M54.50 Low back pain, unspecified (principal); I10 Essential (primary) hypertension; Z91.018 Allergy to other foods; Z79.899 Other long term (current) drug therapy; Z90.49 Acquired absence of other specified parts of digestive tract
CPT/HCPCS: 36415; 74177; 80053; 81003; 84703; 85025; 96361; 96374; 96375; 99284; J1885; J2405; J7030; Q9967; 99283